=== PATIENT | male | born 1995 | race Caucasian/White ===

== ENCOUNTER 2021-10-25 10:11 | Day surgery (SDC) | payer OTHER ==
[2021-10-25] MEDS ORDERED: Depo-Medrol 40 MG/ML IM ONE (10:12)
[2021-10-25] MEDS ORDERED: Sodium Chloride 0.9(Preservative Free) 10 ML IJ ONE (10:12)
[2021-10-25] MEDS ORDERED: Lactated Ringers 1,000 ML IV ONE (11:35)
[2021-10-25] MEDS ORDERED: DIPRIVAN 200 MG/20 ML IV ONE (11:55)
--- NOTE | 2021-10-26 18:30 | XRAY ---
20 seconds fluoroscopy time in surgery for right L4-S1 transforaminal BREANN.
--- NOTE | 2021-10-27 20:46 | XRAY ---
Indication: Right L4-S1 Transforaminal BREANN. Intraoperative fluoroscopy provided for 20 seconds. 3 digital spot images submitted for interpretation demonstrates posterior needle tips projecting over the expected right L4 and L5 nerve roots. Small amounts of contrast injected for needle tip placement. Correlate with intraoperative findings/report.
== END 2021-10-25 12:18 | disposition home or self-care (01) ==
LOC: SDC-PAIN 10:11
PROVIDERS: ATTEND Psychiatry & Neurology Pain Medicine
DX: M54.16 Radiculopathy, lumbar region (principal); Z79.899 Other long term (current) drug therapy
CPT/HCPCS: 64483; 64484; 72100; 77003; J1030; J2704; Q9966

== ENCOUNTER 2021-12-20 09:17 | Day surgery (SDC) | payer OTHER ==
[2021-12-20] MEDS ORDERED: Marcaine Mpf 0.5% Vial 30 Ml IJ ONE (09:18)
[2021-12-20] MEDS ORDERED: Depo-Medrol 40 MG/ML IM ONE (09:18)
[2021-12-20] MEDS ORDERED: DIPRIVAN 200 MG/20 ML IV ONE ×2 (10:52→11:07)
--- NOTE | 2021-12-20 17:39 | XRAY ---
Indication: Right SI joint injection. Intraoperative fluoroscopy provided for 10 seconds. 2 digital spot image submitted for interpretation demonstrates posterior needle tip projecting over the right SI joint. Correlate with intraoperative findings/report.
--- NOTE | 2021-12-20 17:45 | XRAY ---
10 seconds of fluoroscopy was used in surgery for a right SI joint injection.
== END 2021-12-20 11:25 | disposition home or self-care (01) ==
LOC: SDC-PAIN 09:17
PROVIDERS: ATTEND Psychiatry & Neurology Pain Medicine
DX: M46.1 Sacroiliitis, not elsewhere classified (principal); Z79.899 Other long term (current) drug therapy
CPT/HCPCS: 27096; 72170; 77002; J1030; J2704; G0260

== ENCOUNTER 2022-01-24 15:26 | Day surgery (SDC) | payer OTHER ==
[2022-01-24] MEDS ORDERED: Marcaine Mpf 0.5% Vial 30 Ml IJ ONE (15:27)
[2022-01-24] MEDS ORDERED: Sodium Chloride 0.9(Preservative Free) 10 ML IJ ONE (15:27)
[2022-01-24] MEDS ORDERED: Depo-Medrol 40 MG/ML IM ONE (15:27)
[2022-01-24] MEDS ORDERED: Lactated Ringers 1,000 ML IV ONE (16:34)
[2022-01-24] MEDS ORDERED: DIPRIVAN 200 MG/20 ML IV ONE (17:25)
--- NOTE | 2022-01-25 07:44 | XRAY ---
Indication: Right L4-S1 transforaminal BREANN. Intraoperative fluoroscopy provided for 25 seconds. 5 digital spot image submitted for interpretation demonstrates posterior needle tips projecting over the expected right L4 and L5 nerve roots. Small amount of contrast injected for needle tip placement. Correlate with intraoperative findings/report.
--- NOTE | 2022-01-25 07:46 | XRAY ---
Indication: Right SI joint injection. Intraoperative fluoroscopy provided for 6 seconds. 2 digital spot image submitted for interpretation demonstrates posterior needle tip projecting over the right SI joint. Correlate with intraoperative findings/report.
--- NOTE | 2022-01-25 22:05 | XRAY ---
25 seconds of fluoroscopy was used in surgery for a right L4-S1 transforaminal BREANN.
--- NOTE | 2022-01-25 22:06 | XRAY ---
6 seconds of fluoroscopy was used in surgery for a right SI joint injection.
== END 2022-01-24 17:55 | disposition home or self-care (01) ==
LOC: SDC-PAIN 15:26
PROVIDERS: ATTEND Psychiatry & Neurology Pain Medicine
DX: M46.1 Sacroiliitis, not elsewhere classified (principal); M54.16 Radiculopathy, lumbar region; Z79.899 Other long term (current) drug therapy
CPT/HCPCS: 27096; 64483; 64484; 72100; 72170; 77002; 77003; J1030; J2704; Q9966; G0260